=== PATIENT | female | born 2000 | race Caucasian/White ===

== ENCOUNTER 2020-08-20 14:44 | Outpatient (REF) | payer OTHER, SELFPAY ==
--- NOTE | 2020-08-20 14:59 | US_ITS ---
EXAMINATION: MESENTERIC ARTERY ULTRASOUND CLINICAL INFORMATION: Abdominal pain COMPARISON: None TECHNIQUE: Doppler color and grayscale evaluation of the mesenteric arteries and bilateral renal arteries including waveform spectral analysis. Exam was performed with the patient fasting. FINDINGS: The abdominal aorta is normal in caliber. Abdominal aortic systolic velocity measures 181 cm/s proximal to the SMA and 124 cm/s distal to the SMA. Celiac axis peak systolic velocities measure 280 cm/s with inspiration, 268 cm/s with expiration and 267 cm/s in the erect position. Celiac axis peak systolic velocity does not normalize with the patient in the erect position to suggest arcuate ligament compression syndrome. SMA peak systolic velocities measure 382 cm/s proximally, 268 centimeters per second the midportion and 65 cm/s distally. JOSÉ LUIS peak systolic velocity measures 72 cm/s. The renal artery peak systolic velocities measure 149 cm/s on the right and 93 cm/s on the left. US/US SMA IMPRESSION: Elevated peak systolic velocities in the celiac axis and SMA. Follow-up abdominal CTA or MRA should be considered.
== END 2020-08-20 14:45 | disposition home or self-care (01) ==
LOC: HO.US 14:44
PROVIDERS: PCP Pediatrics; Visit Provider Internal Medicine Gastroenterology
DX: R10.13 Epigastric pain (principal)
CPT/HCPCS: 93976

== ENCOUNTER → 2020-09-20 12:40 | Outpatient (BNVA) | payer OTHER, SELFPAY | PROVIDERS: PCP Pediatrics; Visit Provider Internal Medicine Gastroenterology | DX: Z76.89 Persons encountering health services in other specified circumstances (principal) ==

== ENCOUNTER → 2020-09-26 14:34 | Outpatient (BNVA) | payer OTHER, SELFPAY | PROVIDERS: PCP Pediatrics; Visit Provider Internal Medicine Gastroenterology | DX: Z76.89 Persons encountering health services in other specified circumstances (principal) ==

== ENCOUNTER 2020-11-22 14:44 | Outpatient (REF) | payer OTHER, SELFPAY ==
--- NOTE | ~2020-11-22 | MR_ITS ---
EXAMINATION: MR ANGIOGRAPHY ABDOMEN WITHOUT AND WITH CONTRAST CLINICAL INFORMATION: Chronic vascular disorder of intestine. COMPARISON: Previous mesenteric ultrasound August 2020 TECHNIQUE: Sagittal, axial and coronal sequences through the abdomen with and without contrast. The patient received 10 mL intravenous Gadavist contrast. FINDINGS: The abdominal aorta is normal in caliber. The celiac axis, SMA and JOSÉ LUIS are patent. 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 There is a single left renal artery. Renal arteries are patent. The common iliac arteries and iliac bifurcations are patent. 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 The kidneys are normal appearing. The adrenal glands are normal appearing. The pancreas is normal appearing. The gallbladder is normal appearing. The visualized liver and spleen are normal appearing. The stomach is normal appearing. Visualized bowel is unremarkable. No hernia is seen. No ascites or adenopathy is seen. Bony structures are normal. MR/MR angio abdomen wo/w con IMPRESSION: No evidence of mesenteric ischemia. 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
== END 2020-11-22 14:45 | disposition home or self-care (01) ==
LOC: HO.MRI 14:44
PROVIDERS: Visit Provider Internal Medicine Gastroenterology
DX: K55.1 Chronic vascular disorders of intestine (principal)
CPT/HCPCS: 74185; A9585

== ENCOUNTER 2020-12-03 16:18 | Outpatient (REF) | payer OTHER, SELFPAY ==
[2020-12-03 17:35] LABS: MANUAL DIFF FLAG NO
[2020-12-03 17:43] LABS: Glucose Urine UA NEG (NEG); Leukocyte Esterase Urine NEG (NEG); Nitrite Urine NEG (NEG); Specific Gravity - Urine <= 1.005 (1.005-1.025); Urine Blood TRACE (NEG); Urine Ketones NEG (NEG); Urine Protein NEG (NEG-TRACE)
[2020-12-03 17:46] LABS: Basophils Percent Auto 0.6 % (0-2); Eosinophils Absolute Auto 0.1 X10*3/uL (0.0-0.4); Eosinophils Percent Auto 1.8 % (0-4); Hematocrit 40.8 % (37-47); Imm Gran Abs Auto 0.01 X10*3/uL (0.00-0.03); Imm Gran Pct Auto 0.2 % (0.0-0.4); Lymphocytes Absolute Auto 1.6 X10*3/uL (1.2-4.9); Lymphocytes Percent Auto 29.8 % (20-40); Mean Corpuscular HGB Conc 34.3 g/dl (31.0-35.0); Mean Corpuscular Volume 93.2 fL (80-98); Mean Platelet Volume 10.2 fL (9.4-12.3); Monocytes Absolute Auto 0.6 X10*3/uL (0.1-1.2); Monocytes Percent Auto 10.9 % (2-11); Neutrophils Absolute Auto 3.1 X10*3/uL (2.0-8.3); Neutrophils Percent Auto 56.7 % (45-73); Platelet Count 244 X10*3/uL (160-400); Red Blood Count 4.38 X10*6/uL (4.20-5.50); Red Cell Distribution Width 12.2 % (11.0-16.0); White Blood Count 5.4 X10*3/uL (4.8-10.8)
[2020-12-03 18:00] LABS: Appearance Urine CLEAR; Color Urine YELLOW
[2020-12-03 18:01] LABS: UPreg QC Valid YES; Urine Pregnancy NEGATIVE (NEGATIVE)
[2020-12-03 18:04] LABS: Alanine Aminotransferase 13 U/L (0-31); Albumin Level 4.6 g/dL (3.5-5.0); Alkaline Phosphatase 120 U/L (39-117); Amylase 65 U/L (28-100); Anion Gap 17 (12-20); Aspartate Amino Transferase 21 U/L (5-31); Bilirubin Total 2.2 mg/dL (0.0-1.0); Blood Urea Nitrogen 18 mg/dL (9-16); C Reactive Protein 0.49 mg/dL (< or = 0.50); Calcium 9.7 mg/dL (8.4-10.2); Carbon Dioxide 24 mmol/L (22-29); Chloride 103 mmol/L (96-108); Estimated Glomerular Filt Rate > 60; Glucose Random 80 mg/dL (60-115); Lipase 22 U/L (8-78); Potassium 4.6 mmol/L (3.3-5.1); Sodium 139 mmol/L (135-145); Total Protein 7.4 g/dL (6.5-8.0)
[2020-12-03 18:25] LABS: TSH reflex Free T4 1.71 uIU/mL (0.32-4.0)
[2020-12-03 18:33] LABS: Bacteria Urine 1+ /LPF; Squamous Epithelial Cell Urine 2+ /LPF; WBC Urine 0 /HPF (0-4)
[2020-12-03 19:30] LABS: Erythrocyte Sedimentation Rate 6 MM/HR (0-20)
[2020-12-06 08:02] LABS: C. trachomatis RNA TMA NOT DETECTED (NOT DETECTED); N. gonorrhoeae RNA TMA NOT DETECTED (NOT DETECTED)
== END 2020-12-03 16:19 | disposition home or self-care (01) ==
LOC: HO.LAB 16:18
PROVIDERS: PCP Pediatrics; Visit Provider Internal Medicine Gastroenterology
DX: R10.13 Epigastric pain (principal); K27.9 Peptic ulcer, site unspecified, unspecified as acute or chronic, without hemorrhage or perforation; R30.0 Dysuria; Z11.3 Encounter for screening for infections with a predominantly sexual mode of transmission
CPT/HCPCS: 36415; 80053; 81001; 81025; 82150; 83690; 84443; 85025; 85652; 86140; 87491; 87591

== ENCOUNTER 2020-12-06 09:02 | Outpatient (REF) | payer OTHER, SELFPAY ==
--- NOTE | ~2020-12-06 | US_ITS ---
EXAMINATION: US ABDOMEN COMPLETE CLINICAL INFORMATION: Epigastric pain. COMPARISON: None TECHNIQUE: Real-time imaging of the abdominal viscera. FINDINGS: PANCREAS: The visualized head and body of the pancreas appears unremarkable. Remainder of the pancreas is obscured by bowel gas. ABDOMINAL AORTA: The proximal, mid, and distal segments are normal in caliber. INFERIOR VENA CAVA: Visualized portions are normal. LIVER: Normal. The liver is normal in size. The liver contour is normal. Parenchymal echogenicity is normal. No focal hepatic lesion. There is no intrahepatic biliary duct dilatation seen. GALLBLADDER: Mildly contracted gallbladder. No evidence of gallstones. No wall thickening or pericholecystic fluid. . COMMON BILE DUCT: Normal in caliber measuring 0.2 cm in diameter. RIGHT KIDNEY: Normal. No hydronephrosis. No renal calculi or focal parenchymal lesions. The kidney measures 9.7 cm in maximum dimension. LEFT KIDNEY: Normal. No hydronephrosis. No renal calculi or focal parenchymal lesions. The kidney measures 10.4 cm in maximum dimension. SPLEEN: Normal. The spleen measures 9.4 cm in maximum dimension. FREE FLUID: None. US/US abdomen complete IMPRESSION: Unremarkable abdominal ultrasound. In particular, no evidence of cholelithiasis.
== END 2020-12-06 09:03 | disposition home or self-care (01) ==
LOC: HO.HMGCX 09:02
PROVIDERS: PCP Pediatrics; Visit Provider Internal Medicine Gastroenterology
DX: R10.13 Epigastric pain (principal)
CPT/HCPCS: 76700

== ENCOUNTER 2025-04-30 09:52 | Outpatient (AMB) | payer BC, SELFPAY ==
--- NOTE | 2025-04-30 09:55 | MHC.OFFVIS ---
Vital Signs 04/30/25 09:56 Height 5 ft 3 in Weight 119 lb 0.794 oz BMI 21.1 BP 90/50 L Blood Pressure Location Lt brachial Position Sitting Pulse 72 Intake Visit Reasons: nausea l/s 2020 Intake Note: Jessica presents in the office to re-establish care. CC: concerned of possible IBS - she states that she is trying to learn and pay attention more. She wa sin [place] and was constipated for 2 weeks and states it was very painful. 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 Allergies No Known Allergies Allergy (Verified 08/13/20 20:20) HPI HPI nausea l/s 2020: Details: 24 yr old f being seen for abdominal pain RECAP: Had been being seen pain located in epigastrium on and off since 2016 getting worse 06/2020 and 07/2020 pain can be 9/10 in severity almost there every day pain comes on quickly after eating maybe 10-20 mins stress ++ due to studies, makes it worse associated with nausea and emesis taking omeprazole for reflux it is also post prandial with no specific foods she gets bloating and distention she denies diarrhea or constipation trying simethicone with some relief FH of gallbladder issues Investigations: Labs- rast neg, tryptase neg, CRp, TSH neg CTe--negative US doppler-- elevated peak pressures SMA and celiac axis Prior EGD at [facility] with superficial ulceration had healed on repeat EGD GES at [facility] ?pos for gastroparesis MRA- personally reviewed prior to visit today with DR PROCTOR in radiology, not great visualization of mesenteric vessels, but left renal vein pretty dilated highly suspicious of nutcracker syndrome INTERIM: She is waiting to go to [place] next year with boyfriend she had been to [place] last Jun she had severe constipation , despite a good diet she took suppository and did not help it took her body 6 months to recover and to get back to regular pattern she has been looking at diet and increasing fluids she still has flare ups of constipation nausea is better 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 VITAL SIGNS:see workflow HEENT: Nonicteric sclerae, PERRLA, EOMI. Oropharynx clear. Moist mucous membranes. Conjunctivae appear well perfused. No thyroid mass. CHEST: Chest wall is nontender. HEART: Regular rate and rhythm without murmurs. LUNGS: Clear to auscultation bilaterally. ABDOMEN: Soft, positive bowel sounds, tender LUQ and epigastrium, no organomegaly.no flank tenderness GENITAL:not done RECTAL: not done SKIN: No rash, no excessive bruising, petechiae, or purpura. NEUROLOGIC: Cranial nerves II-XII intact without motor/sensory deficit. A/P: 1/ Abn bowle habits, ? related to diet and travel, almost back to normal but not quite--?IBS PLAN: 1/ check labs, as below 2/ lipid screening 3/ discussed high fiber diet and fluid intake --can add metamucil--may need colo--await labs, if neg then colo PFSH Surgical History Hx of endoscopy History of colonoscopy Family History Father Family history of high blood pressure Mother No problems noted. Paternal Grandmother Family history of high blood pressure Colon cancer Social History Alcohol intake: current Alcohol intake frequency: a few times a month Physical Exam Vital Signs: Last Vital Signs Pulse 72 04/30/25 09:56 BP 90/50 L 04/30/25 09:56 BMI result Body Mass Index 21.1 Assessment & Plan Assessment & Plan (1) Epigastric abdominal pain: Code(s): R10.13 - Epigastric pain Category: Medical Plan: as above (2) Lipid screening: Code(s): Z13.220 - Encounter for screening for lipoid disorders Category: Medical Plan: as above (3) Lipid screening: Code(s): Z13.220 - Encounter for screening for lipoid disorders Category: Medical Plan: as above Orders: Orders Complete Blood Count Auto Diff Today R10.13 - Epigastric pain Comprehensive Met. Panel Today K75.81 - Nonalcoholic steatohepatitis (WIGGINS), R10.13 - Epigastric pain Vitamin B12 and Folate Today R10.13 - Epigastric pain Vitamin C Today R10.13 - Epigastric pain Vitamin A Today R10.13 - Epigastric pain C Reactive Protein Today R10.13 - Epigastric pain Transglutaminase IgA Today R10.13 - Epigastric pain Apolipoprotein B Today Z13. - Encounter for screening for lipoid disorders Lipoprotein A Today Z. - Encounter for screening for lipoid disorders Ferritin Today R10.13 - Epigastric pain Vitamin D 25-OH Total Today R10.13 - Epigastric pain Zinc Today R10.13 - Epigastric pain Vitamin B1 Today R10.13 - Epigastric pain Vitamin B6 Today R10.13 - Epigastric pain Hemoglobin A1c Today R10.13 - Epigastric pain Erythrocyte Sedimentation Rate Today R10.13 - Epigastric pain TSH reflex Free T4 Today R10.13 - Epigastric pain Lipid Panel with Reflex Today Z. - Encounter for screening for lipoid disorders Medications: Refilled ondansetron 4 mg PO Q8H PRN 60 tabs 0RF nausea and vomiting Coding Level of Care Code Est Pt Level 3 (07207) Diagnoses Epigastric abdominal pain R10.13 Lipid screening Z
[2025-04-30 09:56] VITALS: BP 90/50; PULSE 72; BMI 21.1
--- OUTSIDE RECORDS SUMMARY | 2025-04-30 10:36 | XMS_ITS | Clinical Summary ---
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 02/16/2024 Active levonorgestreL (SARBJIT) 14 mcg/24 hr (3 yrs) 13.5 mg IUD 13.5 mg. 04/22/2023 Ac tive Active Problems No known active problems Social History Tobacco Use Types Packs/Day Years Used Date Smoking Tobacco: Never Smokeless Tobacco: Never Tobacco Cessation:Counseling Given: Not Answered Education Answer Date Recorded Are you interested in more education? Not on anna e 06/05/2024 Are you concerned about learning? Not on file 06/05/2024 No 06/05/2024 No 06/05/2024 Digital Access Answer Date Recorded No 06/05/2024 No 06/05/2024 Reliable internet access at home? Not on file 06/05/2024 Device with a working camera? Not on file Comments Unknown Sex and Gender Information Value Date Recorded Sex Assigned at Not on file Legal Sex Female 7:18 AM EDT Gender Identity Not on file Sexual Orientation Not on file Last Filed Vital Signs Vital Sign Reading Time Taken Comments Blood Pressure 104/69 06/05/2024 9:36 AM EDT Pulse 78 06/05/2024 9:36 AM EDT Temperature 36.9 C (98.4 F) 06/05/2024 9:36 AM EDT Respiratory Rate 16 06/05/2024 9:36 AM EDT Oxygen Saturation 99% 06/05/2024 9:36 AM EDT Inhaled Oxygen Concentration - - Weight 53.1 kg (117 lb) 06/05/2024 9:36 AM EDT p er pt Height - - Body Mass Index - - Plan of Treatment Not on file Medical Devices Not on file Insurance [facility] [employer] [facility] [employer] [place] [employer] [facility] Care Teams Traffic Circuit Engineer Relationship Specialty Start Date End Date Luz Marina Hughes MD [facility] [address] PCP - General Internal Medicine 06/05/24 Additional Source Comments The information contained in this document represents components of the legal health record. It is not the complete legal health record.[facility]
== END 2025-04-30 10:36 | disposition home or self-care (01) ==
PROVIDERS: PCP Internal Medicine; Visit Provider Internal Medicine Gastroenterology
DX: R10.13 Epigastric pain (principal); Z13.220 Encounter for screening for lipoid disorders
CPT/HCPCS: 99213

== ENCOUNTER 2025-04-30 09:52 | Outpatient (REF) | payer BC, SELFPAY ==
[2025-04-30 11:10] LABS: MANUAL DIFF FLAG NO
[2025-04-30 12:18] LABS: Hemoglobin A1C 100.8936 umol/L; Total Hemoglobin (HGBA1C) 3535.0632 umol/L
[2025-04-30 12:25] LABS: Hematocrit 40.2 % (37.0-47.0); Hemoglobin 13.7 g/dl (12.0-16.0); Imm Gran Abs Auto 0.01 X10*3/uL (0.00-0.03); Imm Gran Pct Auto 0.2 % (0.0-0.4); Lymphocytes Absolute Auto 1.7 X10*3/uL (1.2-4.9); Mean Corpuscular HGB Conc 34.1 g/dl (31.0-35.0); Mean Corpuscular Hemoglobin 31.8 pg (27.0-33.0); Mean Corpuscular Volume 93.3 fL (80.0-98.0); NRBC Abs Auto 0.000 X10*3/uL (0.0-0.012); NRBC Pct Auto 0.0 /100WBC (0.0-0.2); Platelet Count 210 X10*3/uL (160-400); Red Blood Count 4.31 X10*6/uL (4.20-5.50); White Blood Count 5.1 X10*3/uL (4.8-10.8)
[2025-04-30 12:34] LABS: Alanine Aminotransferase 18 U/L (0-31); Albumin Level 4.7 g/dL (3.5-5.0); Alkaline Phosphatase 77 U/L (39-117); Anion Gap 11 (12-20); Aspartate Amino Transferase 23 U/L (5-31); Blood Urea Nitrogen 14 mg/dL (9-16); Calcium 9.2 mg/dL (8.4-10.2); Carbon Dioxide 24 mmol/L (22-29); Chloride 108 mmol/L (96-108); Cholesterol 174 mg/dL (<200); Estimated Glomerular Filt Rate > 60; HDL Cholesterol 70 mg/dL (>40); Potassium 4.1 mmol/L (3.3-5.1); Sodium 139 mmol/L (135-145); Total Protein 7.2 g/dL (6.5-8.0); Triglycerides 77 mg/dL (<150)
[2025-04-30 12:53] LABS: Ferritin 126 ng/mL (10-122)
[2025-04-30 13:08] LABS: Folate 10.0 ng/mL (> or = 4.0); Vitamin B12 528 pg/mL (200-900)
[2025-04-30 13:53] LABS: Reflex LDLD? No
== END 2025-04-30 09:53 | disposition home or self-care (01) ==
LOC: HO.LAB 09:52
PROVIDERS: PCP Internal Medicine; Visit Provider Internal Medicine Gastroenterology
DX: R10.13 Epigastric pain (principal); K75.81 Nonalcoholic steatohepatitis (NASH); Z13.220 Encounter for screening for lipoid disorders
CPT/HCPCS: 36415; 80053; 80061; 82172; 82306; 82607; 82728; 82746; 83036; 83695; 84207; 84425; 84443; 84590; 84630; 85025; 85652; 86140; 86364